=== PATIENT | female | born 1980 | race Caucasian/White ===

== ENCOUNTER 2018-06-13 16:56 | Emergency (ER) | payer OTHER ==
[2018-06-13] MEDS ORDERED: Sodium Chloride 0.9% 1000 ML 1,000 ML IV STA (17:14)
[2018-06-13] MEDS ORDERED: Reglan 10 MG/2 ML IV ONE (17:15)
[2018-06-13] MEDS ORDERED: BENADRYL 50 MG/ML IV ONE (17:15)
--- NOTE | 2018-06-13 17:19 | ERPHSYRPT ---
- History of Present Illness Time Seen by Provider: 06/13/18 17:10 Source: patient Exam Limitations: no limitations Patient Subjective Stated Complaint: MIGRAINE SINCE LAST SUNDAY. WAS SEEN AT [facility] LAST SUNDAY AND HAD A WORKUP DONE. CT WAS NEGATIVE ACCORDING TO PATIENT. TODAY IS HAVING MIGRAINE AGAIN WITH DIZZINESS AND NAUSEA. Triage Nursing Assessment: TO ROOM PER EMS COT. SKIN W/D, COLOR NORMAL, RESP EASY. STATES HEADACHE IS BETTER TODAY BUT IS CONCERNED ABOUT DIZZINESS. [place] Physician History: 37-year-old white female arrives with complaint of migraine headache symptoms since Sunday 5 days ago. Patient states her headache is improving somewhat but is still present she also states that she is feeling dizzy today worse with turning her head. Patient apparently had a complete workup at [facility] which included head CT. Patient denies any fevers she has been nauseous. Past medical history includes migraines, hypothyroidism, GERD, asthma, Sjogren syndrome, celiac. Past surgical history includes cholecystectomy, nieces fundoplication, D&C, bone spur removal Social history patient denies tobacco alcohol or illicit drug use Timing/Duration: day(s) Severity: moderate (5 days) Modifying Factors: Improves With: nothing Associated Symptoms: nausea, vomiting, headaches, No abdominal pain, No shortness of breath, No heartburn, No diaphoresis, No cough, No chills, No chest pain, No fever, No loss of appetite, No malaise, No rash, No syncope, No seizure, No weakness Allergies/Adverse Reactions: latex Allergy (Mild, Verified 12/18/14 02:47) Shortness of Breath DERMABOND Allergy (Mild, Uncoded 12/18/14 02:47) Hives tape Allergy (Mild, Uncoded 12/18/14 02:47) Rash Home Medications: Levothyroxine Sodium 75 Mcg [Synthroid 75 Mcg] 88 mcg PO DAILY 08/09/13 [ History] Topiramate 100 mg [Topamax 100 MG] 50 mg PO BID 08/09/13 [History] Sucralfate 1 gm [Carafate 1 GM] 1 g PO DAILY PRN PRN 12/18/14 [History] Bacillus Coagulans [Probiotic] 1 each PO DAILY 06/13/18 [History] Hydroxychloroquine Sulfate [Plaquenil] 300 mg PO DAILY 06/13/18 [History] Multivitamin [Multivitamins] 1 each PO DAILY 06/13/18 [History] Norethindrone AC-Eth Estradiol [Loestrin 21 1-20 Tablet] 1 each PO DAILY [History] Hx Tetanus, Diphtheria Vaccination/Date Given: Yes Hx Influenza Vaccination/Date Given: Yes Hx Pneumococcal Vaccination/Date Given: No - Review of Systems Constitutional: No Fever, No Chills Eyes: No Symptoms, Photophobia (the) Ears, Nose, & Throat: No Symptoms Respiratory: No Cough, No Dyspnea Cardiac: No Chest Pain, No Edema, No Syncope Abdominal/Gastrointestinal: No Abdominal Pain, No Nausea, No Vomiting, No Diarrhea Genitourinary Symptoms: No Symptoms Musculoskeletal: No Back Pain, No Neck Pain Neurological: Dizziness, Headache, No Focal Weakness, No Sensory Changes Psychological: No Symptoms Endocrine: No Symptoms All Other Systems: Reviewed and Negative - Past Medical History Pertinent Past Medical History: Yes Neurological History: Migraines ENT History: No Pertinent History Cardiac History: No Pertinent History Respiratory History: Asthma Endocrine Medical History: Hypothyroidism Musculoskeletal History: No Pertinent History GI Medical History: GERD, Other History: No Pertinent History Psycho-Social History: No Pertinent History Female Reproductive Disorders: No Pertinent History Other Medical History: CHOGRAN'S - CELIACS WITH MALABSORPTION - Past Surgical History Past Surgical History: Yes Neuro Surgical History: No Pertinent History Cardiac: No Pertinent History Respiratory: No Pertinent History Gastrointestinal: Cholecystectomy, Other Genitourinary: No Pertinent History Musculoskeletal: Orthopedic Surgery Female Surgical History: Other Other Surgical History: NISAN FUNDIFICATION - D AND C - BONE SPUR REMOVAL - Social History Smoking Status: Never smoker Exposure to second hand smoke: No Drug Use: none Patient Lives Alone: No - Female History Hx Last Menstrual Period: ONE WEEK AGO Hx Now: No - Nursing Vital Signs Nursing Vital Signs: Initial Vital Signs Temperature 98.9 F 06/13/18 16:57 Pulse Rate 77 06/13/18 16:57 Respiratory Rate 16 06/13/18 16:57 Blood Pressure 139/78 06/13/18 16:57 O2 Sat by Pulse Oximetry 98 06/13/18 16:57 Pain Scale Pain Intensity 0 - Physical Exam General Appearance: mild distress Eye Exam: PERRL/EOMI, eyes nml inspection Ears, Nose, Throat Exam: normal ENT inspection, TMs normal, pharynx normal, moist mucous membranes Neck Exam: normal inspection, non-tender, supple, full range of motion Respiratory Exam: normal breath sounds, lungs clear, No respiratory distress Cardiovascular Exam: regular rate/rhythm, normal heart sounds, normal peripheral pulses, capillary refill <2 sec Gastrointestinal/Abdomen Exam: soft, normal bowel sounds, No tenderness, No mass Back Exam: normal inspection, normal range of motion, No CVA tenderness, No vertebral tenderness Extremity Exam: normal inspection, normal range of motion, pelvis stable Neurologic Exam: alert, oriented x 3, 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, 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, normal mood/affect Skin Exam: normal color, warm, dry, No rash Lymphatic Exam: No adenopathy SpO2 Interpretation: normal (98%) SpO2: 98 Ordered Tests: Medication Summary Discontinued Medications Generic Name Dose Route Start Last Admin Trade Name Freq PRN Reason Stop Dose Admin Diphenhydramine HCl 25 mg 06/13/18 17:15 06/13/18 17:56 Benadryl 50 Mg/Ml IV 06/13/18 17:16 25 mg STAT ONE Administration Diphenhydramine HCl Confirm 06/13/18 17:47 Benadryl 50 Mg/Ml Administered 06/13/18 17:48 Dose 50 mg .ROUTE .STK-MED ONE Sodium Chloride 1,000 mls @ 999 mls/hr 06/13/18 17:14 06/13/18 19:08 Sodium Chloride 0.9% 1000 Ml IV 06/13/18 18:14 Infused .Q1H1M STA Infusion Sodium Chloride Confirm 06/13/18 17:47 Sodium Chloride 0.9% 1000 Ml Administered 06/13/18 17:48 Dose 1,000 mls @ ud .ROUTE .STK-MED ONE Metoclopramide HCl 10 mg 06/13/18 17:15 06/13/18 17:56 Reglan 10 Mg/2 Ml IV 06/13/18 17:16 10 mg STAT ONE Administration Metoclopramide HCl Confirm 06/13/18 17:47 Reglan 10 Mg/2 Ml Administered 06/13/18 17:48 Dose 10 mg .ROUTE .STK-MED ONE Lab/Rad Data: Laboratory Result Diagrams 06/13/18 17:30 03/14/19 17:30 Laboratory Results 06/13/18 06/13/18 06/13/18 Range/Units 18:00 17:30 17:30 WBC (4.0-10.5) K/mm3 RBC (4.1-5.4) M/mm3 Hgb (12.0-16.0) gm/dl Hct (35-47) % MCV (78-100) fl MCH (26-32) pg MCHC (32-36) g/dl RDW (11.5-14.0) % Plt Count (150-450) K/mm3 MPV (6-9.5) fl Gran % (36.0-66.0) % Eos # (Auto) (0-0.5) Absolute Lymphs (auto) (1.0-4.6) Absolute Monos (auto) (0.0-1.3) Lymphocytes % (24.0-44.0) % Monocytes % (0.0-12.0) % Eosinophils % (0.00-5.0) % Basophils % (0.0-0.4) % Absolute Granulocytes (1.4-6.9) Basophils # (0-0.4) Sodium 140 (137-145) mmol/L Potassium 3.8 (3.5-5.1) mmol/L Chloride 109 H (98-107) mmol/L Carbon Dioxide 19 L (22-30) mmol/L Anion Gap 16.4 H (5-15) MEQ/L BUN 14 (7-17) mg/dL Creatinine 0.76 (0.52-1.04) mg/dL Estimated GFR > 60.0 ML/MIN Glucose 78 (74-106) mg/dL Calcium 9.5 (8.4-10.2) mg/dL Total Bilirubin 2.10 H (0.2-1.3) mg/dL AST 22 (14-36) U/L ALT 18 (0-35) U/L Alkaline Phosphatase 52 (38-126) U/L Serum Total Protein 7.9 (6.3-8.2) g/dL Albumin 4.5 (3.5-5.0) g/dL Amylase 83 (30-110) U/L Lipase 69 (23-300) U/L Serum , Qual NEGATIVE (Negative) Urine Color YELLOW (YELLOW) Urine Appearance SLIGHTLY CLOUDY (CLEAR) Urine pH 5.0 (5-6) Ur Specific [place] 1.028 (1.005-1.025) Urine Protein NEGATIVE (Negative) Urine Ketones MODERATE (NEGATIVE) Urine Blood NEGATIVE (0-5) Rodrigo/ul Urine Nitrite NEGATIVE (NEGATIVE) Urine Bilirubin NEGATIVE (NEGATIVE) Urine Urobilinogen NEGATIVE (0-1) mg/dL Ur Leukocyte Esterase NEGATIVE (NEGATIVE) Urine WBC (Auto) 3-5 (0-5) /HPF Urine RBC (Auto) 0-2 (0-2) /HPF U Epithel Cells (Auto) MODERATE (FEW) /HPF Urine Bacteria (Auto) NONE (NEGATIVE) /HPF Urine Mucus (Auto) SLIGHT (NEGATIVE) /HPF Urine Culture Reflexed NO (NO) Urine Glucose NEGATIVE (NEGATIVE) mg/dL 06/13/18 Range/Units 17:30 WBC 6.5 (4.0-10.5) K/mm3 RBC 4.68 (4.1-5.4) M/mm3 Hgb 13.8 (12.0-16.0) gm/dl Hct 42.3 (35-47) % MCV 90.4 (78-100) fl MCH 29.5 (26-32) pg MCHC 32.6 (32-36) g/dl RDW 15.1 H (11.5-14.0) % Plt Count 268 (150-450) K/mm3 MPV 10.9 H (6-9.5) fl Gran % 69.9 H (36.0-66.0) % Eos # (Auto) 0.05 (0-0.5) Absolute Lymphs (auto) 1.45 (1.0-4.6) Absolute Monos (auto) 0.43 (0.0-1.3) Lymphocytes % 22.2 L (24.0-44.0) % Monocytes % 6.6 (0.0-12.0) % Eosinophils % 0.8 (0.00-5.0) % Basophils % 0.5 (0.0-0.4) % Absolute Granulocytes 4.56 (1.4-6.9) Basophils # 0.03 (0-0.4) Sodium (137-145) mmol/L Potassium (3.5-5.1) mmol/L Chloride (98-107) mmol/L Carbon Dioxide (22-30) mmol/L Anion Gap (5-15) MEQ/L BUN (7-17) mg/dL Creatinine (0.52-1.04) mg/dL Estimated GFR ML/MIN Glucose (74-106) mg/dL Calcium (8.4-10.2) mg/dL Total Bilirubin (0.2-1.3) mg/dL AST (14-36) U/L ALT (0-35) U/L Alkaline Phosphatase (38-126) U/L Serum Total Protein (6.3-8.2) g/dL Albumin (3.5-5.0) g/dL Amylase (30-110) U/L Lipase (23-300) U/L Serum , Qual (Negative) Urine Color (YELLOW) Urine Appearance (CLEAR) Urine pH (5-6) Ur Specific [place] (1.005-1.025) Urine Protein (Negative) Urine Ketones (NEGATIVE) Urine Blood (0-5) Rodrigo/ul Urine Nitrite (NEGATIVE) Urine Bilirubin (NEGATIVE) Urine Urobilinogen (0-1) mg/dL Ur Leukocyte Esterase (NEGATIVE) Urine WBC (Auto) (0-5) /HPF Urine RBC (Auto) (0-2) /HPF U Epithel Cells (Auto) (FEW) /HPF Urine Bacteria (Auto) (NEGATIVE) /HPF Urine Mucus (Auto) (NEGATIVE) /HPF Urine Culture Reflexed (NO) Urine Glucose (NEGATIVE) mg/dL - Progress Progress: improved Progress Note: 06/13/18 18:35 Patient is feeling better after IV normal saline, Reglan, Benadryl. She states she had slight dizziness with sitting up however she does not want any more fluids. I reviewed the patient's head CT from [facility] which was performed on June 08, 2018. This was remarkable for a normal unenhanced CT scan of the brain. Will plan to discharge patient. Diagnosis migraine headache. Dizziness. Patient to return home rest in dark quiet room plenty of fluids follow-up with Dr. Friedman. Return for acute distress or for severe symptoms. Patient's urinalysis essentially normal hCG was negative CBC was normal chemistry remarkable for sodium of 140 potassium 3.8 chloride 109 bicarbonate 19 BUN 14 creatinine 0.76 glucose 78 total bilirubin was elevated at 2.10 patient is not having abdominal pain patient and and gap was 16.4 patient's EKG was remarkable for sinus rhythm 59 bpm normal axis no acute ST or T wave changes. Patient will be released in good condition - Departure Time of Disposition: 19:10 Departure Disposition: Home Clinical Impression: Dehydration, Dizziness Migraine headache Qualifiers: Migraine type: unspecified Status migrainosus presence: without status migrainosus Intractability: not intractable Qualified Code(s): G43.909 - Migraine, unspecified, not intractable, without status migrainosus Condition: Fair Critical Care Time: No Referrals: SAYDA FRIEDMAN [Primary Care Provider] - Additional Instructions: Return home. Rest. Plenty of fluids. Follow-up with Dr. Friedman if symptoms recurrent. Return for acute distress severe symptoms or for any problems.
[2018-06-13] MEDS ORDERED: Sodium Chloride 0.9% 1000 ML 1,000 ML ONE (17:47)
[2018-06-13] MEDS ORDERED: Reglan 10 MG/2 ML ONE (17:47)
[2018-06-13] MEDS ORDERED: BENADRYL 50 MG/ML ONE (17:47)
[2018-06-13 17:51] LABS: ALBUMIN 4.5 g/dL (3.5-5.0); ALKALINE PHOSPHATASE 52 U/L (38-126); AMYLASE 83 U/L (30-110); ANION GAP 16.4 MEQ/L (5-15); BLOOD UREA NITROGEN 14 mg/dL (7-17); CHLORIDE 109 mmol/L (98-107); Calcium 9.5 mg/dL (8.4-10.2); Carbon Dioxide 19 mmol/L (22-30); Creatinine 1 0.76 mg/dL (0.52-1.04); Glucose 78 mg/dL (74-106); LIPASE 69 U/L (23-300); Potassium 3.8 mmol/L (3.5-5.1); SGOT/AST 22 U/L (14-36); SGPT/ALT 18 U/L (0-35); SODIUM 140 mmol/L (137-145); Total Protein 7.9 g/dL (6.3-8.2)
[2018-06-13 18:03] VITALS: PULSE 56
[2018-06-13 18:04] LABS: BASOPHIL % 0.5 % (0.0-0.4); Basophil (Absolute #) 0.03 (0-0.4); Eosinophil % 0.8 % (0.00-5.0); Eosinophil (Absolute #) 0.05 (0-0.5); Granulocyte Absolute (ANC) 4.56 (1.4-6.9); Granulocytes % 69.9 % (36.0-66.0); Hematocrit 42.3 % (35-47); Hemoglobin 13.8 gm/dl (12.0-16.0); Lymphocyte (Absolute #) 1.45 (1.0-4.6); Lymphocytes % 22.2 % (24.0-44.0); Mean Cell Volume 90.4 fl (78-100); Mean Corpuscular Hemoglobin 29.5 pg (26-32); Mean Corpuscular Hgb Concent. 32.6 g/dl (32-36); Mean Platelet Volume 10.9 fl (6-9.5); Monocyte (Absolute #) 0.43 (0.0-1.3); Monocytes % 6.6 % (0.0-12.0); Platelet Count 268 K/mm3 (150-450); Red Blood Count 4.68 M/mm3 (4.1-5.4); Red Cell Distribution Width 15.1 % (11.5-14.0); White Blood Count 6.5 K/mm3 (4.0-10.5)
[2018-06-13 18:12] VITALS: O2SAT 98
[2018-06-13 18:31] LABS: Appearance SLIGHTLY CLOUDY (CLEAR); Bilirubin NEGATIVE (NEGATIVE); Blood NEGATIVE Ery/ul (0-5); Epithelial Cells MODERATE /HPF (FEW); Glucose NEGATIVE (NEGATIVE); Ketones MODERATE (NEGATIVE); Leukocyte Esterase NEGATIVE (NEGATIVE); Mucus SLIGHT /HPF (NEGATIVE); Nitrite NEGATIVE (NEGATIVE); Protein,Urine Dip NEGATIVE (Negative); RBC 0-2 /HPF (0-2); Specific Gravity 1.028 (1.005-1.025); Urobilinogen NEGATIVE mg/dL (0-1)
[2018-06-13 19:10] VITALS: BP 107/60
== END 2018-06-13 19:10 | disposition home or self-care (01) ==
LOC: ED 16:56
DX: E86.0 Dehydration (principal); R42 Dizziness and giddiness; G43.909 Migraine, unspecified, not intractable, without status migrainosus
CPT/HCPCS: 36000; 36415; 80053; 81001; 81025; 82150; 83690; 85025; 93005; 96360; 96374; 96375; 99284; J1200

== ENCOUNTER 2022-01-19 06:25 | Emergency (ER) | payer OTHER ==
[2022-01-19] MEDS ORDERED: Sodium Chloride 0.9% 1000 ML 1,000 ML IV STA (07:10)
--- NOTE | 2022-01-19 07:10 | ERPHSYRPT ---
- History of Present Illness Time Seen by Provider: 01/19/22 07:05 Source: patient Exam Limitations: no limitations Patient Subjective Stated Complaint: pt states "I started feeling dizzy last night around 8 and then I started throwing up early this morning." Triage Nursing Assessment: pt presents to ED via wheelchair, pt alert and oriented x3, pt c/o dizziness and vomiting that started last night, pt dry heaving in triage, pt denies fever, pt has LLQ pain as well, pt does have diarrhea but she took laxatives yesterday d/t being constipated, pt has recent hysterectomy surgery on 12/21/[address] Traore Physician History: This is a 41-year-old white female patient of Dr. Almonte and presents with dizziness that started at 8 PM last night. Symptoms persisted throughout the night and patient had vomiting this morning then dry heaves. She had a Whitney fundoplication in the past. Within the last 2 months she underwent a hysterectomy. Patient has a history of gastroesophageal reflux disease and hypothyroidism. Patient describes her dizziness as the room spinning but she is stationary. There is been no changes in her medication or stressors at home. She denies head injury. She denies chest pain and she denies shortness of breath. Timing/Duration: yesterday Severity: mild Deficits: no difficulties Baseline/Normal Cognition: alert oriented x 3 Current Cognition: alert oriented x 3 Associated Symptoms: nausea, vomiting, No weakness, No ringing in ears, No seizures, No slurred speech, No vision changes, No headache Allergies/Adverse Reactions: latex Allergy (Mild, Verified 01/19/22 06:40) Shortness of Breath DERMABOND Allergy (Mild, Uncoded 12/18/14 02:47) Hives tape Allergy (Mild, Uncoded 12/18/14 02:47) Rash Home Medications: Multivitamin [Multivitamins] 1 each PO DAILY 06/13/18 [History] Famotidine 20 mg [Pepcid 20 MG] 20 mg PO DAILY 01/19/22 [History] Pantoprazole 40 mg [Protonix 40 mg IV] 40 mg PO DAILY 01/19/22 [History] Hx Tetanus, Diphtheria Vaccination/Date Given: Yes Hx Influenza Vaccination/Date Given: Yes Hx Pneumococcal Vaccination/Date Given: No Immunizations Up to Date: No Travel Risk - International Travel Have you traveled outside of the country in past 3 weeks: No - Coronavirus Screening Are you exhibiting any of the following symptoms?: No Close contact with a COVID-19 positive Pt in past 14-21 Days: No - Vaccine Status Have you recieved a Covid-19 vaccination: Yes 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: [employer] - Vaccination Dates Date of 2cond Vaccination (if applicable): 2020 - Review of Systems Constitutional: No Symptoms Eyes: No Symptoms Ears, Nose, & Throat: No Symptoms Respiratory: No Symptoms Cardiac: No Symptoms Abdominal/Gastrointestinal: No Symptoms Genitourinary Symptoms: No Symptoms Musculoskeletal: No Symptoms Skin: No Symptoms Neurological: Dizziness Psychological: No Symptoms Endocrine: No Symptoms Hematologic/Lymphatic: No Symptoms Immunological/Allergic: No Symptoms All Other Systems: Reviewed and Negative - Past Medical History Pertinent Past Medical History: Yes Neurological History: Migraines ENT History: No Pertinent History Cardiac History: No Pertinent History Respiratory History: Asthma, Other Endocrine Medical History: Hypothyroidism Musculoskeletal History: Arthritis GI Medical History: GERD, Other History: No Pertinent History Psycho-Social History: No Pertinent History Female Reproductive Disorders: No Pertinent History Other Medical History: COVID-19, R foot surgery, cholecystectomy, tubal ligation, hiatal hernia repair, Whitney fundoplication - Past Surgical History Past Surgical History: Yes Neuro Surgical History: No Pertinent History Cardiac: No Pertinent History Respiratory: No Pertinent History Gastrointestinal: Cholecystectomy, Other Genitourinary: No Pertinent History Musculoskeletal: Orthopedic Surgery Female Surgical History: Hysterectomy, Tubal Ligation, Other Other Surgical History: NISAN FUNDIFICATION - D AND C - BONE SPUR REMOVAL - Social History Smoking Status: Never smoker Exposure to second hand smoke: No Drug Use: none Patient Lives Alone: No - Female History Hx Last Menstrual Period: hysterectomy Hx Now: No - Nursing Vital Signs Nursing Vital Signs: Initial Vital Signs Temperature 97.6 F 01/19/22 06:40 Pulse Rate 63 01/19/22 06:40 Respiratory Rate 18 01/19/22 06:40 Blood Pressure 117/79 01/19/22 06:40 O2 Sat by Pulse Oximetry 100 01/19/22 06:40 Pain Scale Pain Intensity 2 - [place] Coma Scale Best Eye Response (Connor): (4) open spontaneously Best Verbal Response (Connor): (5) oriented Best Motor Response (Connor): (6) obeys commands [place] Total: 15 - Physical Exam General Appearance: no apparent distress, alert, anxiety Eye Exam: bilateral eye: normal inspection, PERRL, EOMI Ears, Nose, Throat Exam: normal ENT inspection, moist mucous membranes Neck Exam: normal inspection, non-tender, supple, full range of motion Respiratory: normal breath sounds, lungs clear, airway intact, No chest tenderness, No respiratory distress Cardiovascular: regular rate/rhythm, normal heart sounds, normal peripheral pulses Gastrointestinal: soft, normal bowel sounds, No tenderness Pelvic Exam: not done Rectal Exam: not done Back Exam: normal inspection, normal range of motion, No CVA tenderness, No vertebral tenderness Extremity Exam: normal inspection, normal range of motion, pelvis stable Mental Status: alert, 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 x 3, 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 Exam: normal hearing, normal speech, PERRL Coordination/Gait: normal finger to nose, normal gait, normal cerebellar function Motor/Sensory: no motor deficit, no sensory deficit, no pronator drift Skin Exam: normal color, warm, dry SpO2 Interpretation: normal SpO2: 100 O2 Delivery: Room Air Ordered Tests: Active Orders 24 hr Category Date Time Status EKG-ER Only STAT Care 01/19/22 07:10 Active IV Insertion STAT Care 01/19/22 07:10 Active HEAD WITHOUT CONTRAST [CT] Stat Exams 01/19/22 07:10 Completed CBC W DIFF Stat Lab 01/19/22 07:25 Completed CMP Stat Lab 01/19/22 07:25 Completed ETHYL ALCOHOL Stat Lab 01/19/22 07:25 Completed T4 (Thyroxine) Stat Lab 01/19/22 07:25 Completed TROPONIN Q4H Lab 01/19/22 07:25 Completed TROPONIN Q4H Lab 01/19/22 11:15 Ordered TROPONIN Q4H Lab 01/19/22 15:15 Ordered TSH, 3RD Generation Stat Lab 01/19/22 07:25 Completed UA W/RFX CULTURE Stat Lab 01/19/22 09:34 Completed Medication Summary Discontinued Medications Generic Name Dose Route Start Last Admin Trade Name Freq PRN Reason Stop Dose Admin Sodium Chloride 1,000 mls @ 999 mls/hr 01/19/22 07:10 01/19/22 09:00 Sodium Chloride 0.9% 1000 Ml IV 01/19/22 08:10 Infused .Q1H1M STA Infusion Sodium Chloride Confirm 01/19/22 07:31 Sodium Chloride 0.9% 1000 Ml Administered 01/19/22 07:32 Dose 1,000 mls @ ud .ROUTE .K-MED ONE Prochlorperazine Edisylate 5 mg 01/19/22 07:11 01/19/22 07:27 Prochlorperazine Edisylate 10 Mg/2 Ml Vial IV 01/19/22 07:12 5 mg STAT ONE Administration Prochlorperazine Edisylate Confirm 01/19/22 07:27 Prochlorperazine Edisylate 10 Mg/2 Ml Vial Administered 01/19/22 07:28 Dose 10 mg .ROUTE .[facility] ONE Lab/Rad Data: Laboratory Result Diagrams 01/19/22 07:25 01/19/22 07:25 Laboratory Results 01/19/22 01/19/22 01/19/22 Range/Units 09:34 07:25 07:25 WBC (4.0-10.5) x10^3/uL RBC (4.1-5.4) x10^6/uL Hgb (12.0-16.0) g/dL Hct (35-47) % MCV (78-100) fL MCH (26-32) pg MCHC (32-36) g/dL RDW (11.5-14.0) % Plt Count (150-450) x10^3/uL MPV (7.5-11.0) fL Gran % (36.0-66.0) % Immature Gran % (Auto) (0.00-0.4) % Nucleat RBC Rel Count (0.00-0.1) % Eos # (Auto) (0-0.5) x10^3/uL Immature Gran # (Auto) (0.00-0.03) x10^3u/L Absolute Lymphs (auto) (1.0-4.6) x10^3/uL Absolute Monos (auto) (0.0-1.3) x10^3/uL Absolute Nucleated RBC (0.00-0.01) x10^3u/L Lymphocytes % (24.0-44.0) % Monocytes % (0.0-12.0) % Eosinophils % (0.00-5.0) % Basophils % (0.0-0.4) % Absolute Granulocytes (1.4-6.9) x10^3/uL Basophils # (0-0.4) x10^3/uL Sodium 137 (137-145) mmol/L Potassium 4.0 (3.5-5.1) mmol/L Chloride 106 (98-107) mmol/L Carbon Dioxide 29 (22-30) mmol/L Anion Gap 6.9 (5-15) MEQ/L BUN 14 (7-17) mg/dL Creatinine 0.62 (0.52-1.04) mg/dL Estimated GFR > 60.0 ML/MIN Glucose 102 (74-106) mg/dL Calcium 8.8 (8.4-10.2) mg/dL Total Bilirubin 1.10 (0.2-1.3) mg/dL AST 52 H (14-36) U/L ALT 65 H (0-35) U/L Alkaline Phosphatase 84 (38-126) U/L Troponin I < 0.012 (0.000-0.034) ng/mL Serum Total Protein 7.0 (6.3-8.2) g/dL Albumin 4.0 (3.5-5.0) g/dL Thyroxine (T4) 11.7 H (5.53-10.96) ug/dL TSH 3rd Generation < 0.015 L (0.47-4.68) mIU/L Urinalys Dipstick Clnc MAIN LAB Urine Color YELLOW (YELLOW) Urine Appearance CLEAR (CLEAR) Urine pH 7.0 (5-6) Ur Specific [place] 1.015 (1.005-1.025) POC Urine Protein Conf NEGATIVE (Negative) Urine Ketones MODERATE-40 (NEGATIVE) Urine Nitrite NEGATIVE (NEGATIVE) Urine Bilirubin NEGATIVE (NEGATIVE) Urine Urobilinogen 1 (0-1) mg/dL Urine Leukocytes NEGATIVE (NEGATIVE) Urine WBC (Auto) NONE (0-5) /HPF Urine RBC (Auto) NONE (0-2) /HPF U Epithel Cells (Auto) RARE (FEW) /HPF Urine Bacteria (Auto) RARE (NEGATIVE) /HPF Urine RBC NEGATIVE (0-5) Rodrigo/ul Ur Culture Indicated? NO Urine Glucose NEGATIVE (NEGATIVE) mg/dL Ethyl Alcohol < 10 (0-10) mg/dL 01/19/22 Range/Units 07:25 WBC 5.2 (4.0-10.5) x10^3/uL RBC 3.92 L (4.1-5.4) x10^6/uL Hgb 11.6 L (12.0-16.0) g/dL Hct 37.1 (35-47) % MCV 94.6 (78-100) fL MCH 29.6 (26-32) pg MCHC 31.3 L (32-36) g/dL RDW 12.0 (11.5-14.0) % Plt Count 213 (150-450) x10^3/uL MPV 10.1 (7.5-11.0) fL Gran % 67.4 H (36.0-66.0) % Immature Gran % (Auto) 0.4 (0.00-0.4) % Nucleat RBC Rel Count 0.0 (0.00-0.1) % Eos # (Auto) 0.17 (0-0.5) x10^3/uL Immature Gran # (Auto) 0.02 (0.00-0.03) x10^3u/L Absolute Lymphs (auto) 1.09 (1.0-4.6) x10^3/uL Absolute Monos (auto) 0.40 (0.0-1.3) x10^3/uL Absolute Nucleated RBC 0.00 (0.00-0.01) x10^3u/L Lymphocytes % 21.0 L (24.0-44.0) % Monocytes % 7.7 (0.0-12.0) % Eosinophils % 3.3 (0.00-5.0) % Basophils % 0.2 (0.0-0.4) % Absolute Granulocytes 3.51 (1.4-6.9) x10^3/uL Basophils # 0.01 (0-0.4) x10^3/uL Sodium (137-145) mmol/L Potassium (3.5-5.1) mmol/L Chloride (98-107) mmol/L Carbon Dioxide (22-30) mmol/L Anion Gap (5-15) MEQ/L BUN (7-17) mg/dL Creatinine (0.52-1.04) mg/dL Estimated GFR ML/MIN Glucose (74-106) mg/dL Calcium (8.4-10.2) mg/dL Total Bilirubin (0.2-1.3) mg/dL AST (14-36) U/L ALT (0-35) U/L Alkaline Phosphatase (38-126) U/L Troponin I (0.000-0.034) ng/mL Serum Total Protein (6.3-8.2) g/dL Albumin (3.5-5.0) g/dL Thyroxine (T4) (5.53-10.96) ug/dL TSH 3rd Generation (0.47-4.68) mIU/L Urinalys Dipstick Clnc Urine Color (YELLOW) Urine Appearance (CLEAR) Urine pH (5-6) Ur Specific [place] (1.005-1.025) POC Urine Protein Conf (Negative) Urine Ketones (NEGATIVE) Urine Nitrite (NEGATIVE) Urine Bilirubin (NEGATIVE) Urine Urobilinogen (0-1) mg/dL Urine Leukocytes (NEGATIVE) Urine WBC (Auto) (0-5) /HPF Urine RBC (Auto) (0-2) /HPF U Epithel Cells (Auto) (FEW) /HPF Urine Bacteria (Auto) (NEGATIVE) /HPF Urine RBC (0-5) Rodrigo/ul Ur Culture Indicated? Urine Glucose (NEGATIVE) mg/dL Ethyl Alcohol (0-10) mg/dL - Progress Progress: improved, re-examined Progress Note: 01/19/22 08:35 CAT scan of the head without contrast shows a normal study. Counseled pt/family regarding: lab results, diagnosis, need for follow-up, rad results - Departure Departure Disposition: Home Clinical Impression: Dizziness, Hyperthyroidism, Dehydration Condition: Stable Critical Care Time: No Referrals: SAYDA FRIEDMAN [Primary Care Provider] - Follow up/PCP as directed Additional Instructions: Call your primary prescribing provider today to make an arrangement for follow- up appointment for further evaluation management of your thyroid medication and persistent dizziness. Prescriptions: Ondansetron ODT 4 MG [Zofran Odt 4 mg] 4 mg PO Q6H PRN PRN #10 tablet PRN Reason: Vomiting Meclizine HCl 25 mg [Antivert 25 mg] 25 mg PO Q8H PRN #10 tablet PRN Reason: Dizziness
[2022-01-19] MEDS ORDERED: Compazine 10 MG/2 ML IV ONE (07:11)
[2022-01-19 07:27] LABS: Absolute Neutrophil Ct (ANC) 3.51 x10^3/uL (1.4-6.9); Basophil (Absolute #) 0.01 x10^3/uL (0-0.4); Eosinophil % 3.3 % (0.00-5.0); Eosinophil (Absolute #) 0.17 x10^3/uL (0-0.5); Hematocrit 37.1 % (35-47); Hemoglobin 11.6 g/dL (12.0-16.0); Lymphocyte (Absolute #) 1.09 x10^3/uL (1.0-4.6); Mean Cell Volume 94.6 fL (78-100); Mean Corpuscular Hemoglobin 29.6 pg (26-32); Mean Corpuscular Hgb Concent. 31.3 g/dL (32-36); Mean Platelet Volume 10.1 fL (7.5-11.0); Monocytes % 7.7 % (0.0-12.0); Neutrophil % 67.4 % (36.0-66.0); Platelet Count 213 x10^3/uL (150-450); Red Blood Count 3.92 x10^6/uL (4.1-5.4); White Blood Count 5.2 x10^3/uL (4.0-10.5)
[2022-01-19] MEDS ORDERED: Compazine 10 MG/2 ML ONE (07:27)
[2022-01-19] MEDS ORDERED: Sodium Chloride 0.9% 1000 ML 1,000 ML ONE (07:31)
[2022-01-19 08:17] LABS: ALKALINE PHOSPHATASE 84 U/L (38-126); ANION GAP 6.9 MEQ/L (5-15); BLOOD UREA NITROGEN 14 mg/dL (7-17); CHLORIDE 106 mmol/L (98-107); Calcium 8.8 mg/dL (8.4-10.2); Carbon Dioxide 29 mmol/L (22-30); Creatinine 1 0.62 mg/dL (0.52-1.04); EST GLOMERULAR FILTRATION RATE > 60.0 ML/MIN; ETHYL ALCOHOL < 10 mg/dL (0-10); Glucose 102 mg/dL (74-106); SGOT/AST 52 U/L (14-36); SGPT/ALT 65 U/L (0-35); SODIUM 137 mmol/L (137-145); T4 (Thyroxine) 11.7 ug/dL (5.53-10.96); TSH, 3RD Generation < 0.015 mIU/L (0.47-4.68)
--- NOTE | 2022-01-19 08:34 | XRAY ---
Indication: Dizziness, nausea, and vomiting. Multiple contiguous axial images obtained through the head without contrast. Comparison: None Normal appearing brain parenchyma, ventricles, and bony calvarium for patient's age. Visualized paranasal sinuses and mastoid air cells are clear. Impression: Normal CT head without contrast exam.
[2022-01-19 09:40] LABS: Bacteria RARE /HPF (NEGATIVE); Epithelial Cells RARE /HPF (FEW)
[2022-01-19 09:41] LABS: Appearance CLEAR (CLEAR); Dipstick done @ ? MAIN LAB; Ketones MODERATE-40 (NEGATIVE); Nitrite NEGATIVE (NEGATIVE); Protein,Urine Dip NEGATIVE (Negative); RBC NEGATIVE Ery/ul (0-5); Specific Gravity 1.015 (1.005-1.025); Urobilinogen 1 mg/dL (0-1)
[2022-01-19 09:43] LABS: Glucose NEGATIVE (NEGATIVE)
[2022-01-19 09:44] LABS: Bilirubin NEGATIVE (NEGATIVE); Urine Cultured Indicated? NO
[2022-01-19 10:51] VITALS: BP 111/75; PULSE 68; O2SAT 98
== END 2022-01-19 10:52 | disposition home or self-care (01) ==
LOC: ED 06:25
DX: E05.90 Thyrotoxicosis, unspecified without thyrotoxic crisis or storm (principal); R42 Dizziness and giddiness; E86.0 Dehydration; R11.2 Nausea with vomiting, unspecified; Z86.16 Personal history of COVID-19
CPT/HCPCS: 36000; 36415; 70450; 80053; 80307; 81015; 84436; 84443; 84484; 85025; 93005; 96374; 99284; G0480

== ENCOUNTER 2023-02-23 06:11 | Emergency (ER) | payer OTHER ==
[2023-02-23 06:47] VITALS: TEMP 97.9
--- NOTE | 2023-02-23 06:50 | ERPHSYRPT ---
- History of Present Illness Source: patient Exam Limitations: no limitations Timing/Duration: today Activities at Onset: activity Severity of Dyspnea-Max: moderate Severity of Dyspnea-Current: mild (To moderate) Possible Cause: no prior episodes Associated Symptoms: ankle swelling, dizziness, No cough, No chest pain/discomfort, No calf pain, No productive cough Hx Tetanus, Diphtheria Vaccination/Date Given: Yes Hx Influenza Vaccination/Date Given: Yes Hx Pneumococcal Vaccination/Date Given: No <EMERALD QUINTANILLA - Last Filed: 02/23/23 06:44> <ALLEN MAURER - Last Filed: 02/23/23 11:06> - History of Present Illness Time Seen by Provider: 02/23/23 06:25 Physician History: This is a 42-year-old white female patient of Dr. Norwood who has a history of dizziness and woke up dizzy at approximately 4 AM to go into work. She then experienced shortness of breath that was significant enough for her to come into the emergency department. She denies nausea vomiting or diarrhea symptoms. She denies cough. She denies chest pain. Patient has a history of asthma, gastroesophageal reflux disease, hypothyroidism and arthritis. 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 Meyer and pain specialist Dr. Ureña. (EMERALD QUINTANILLA) Allergies/Adverse Reactions: Iodinated Contrast Media Allergy (Intermediate, Verified 02/23/23 08:40) Shortness of Breath latex Allergy (Mild, Verified 02/23/23 06:13) Shortness of Breath cockroach Allergy (Verified 02/23/23 06:13) shrimp Allergy (Verified 02/23/23 06:13) DERMABOND Allergy (Mild, Uncoded 02/23/23 06:13) Hives tape Allergy (Mild, Uncoded 02/23/23 06:13) Rash Home Medications: Multivitamin [Multivitamins] 1 each PO DAILY 06/13/18 [History] Famotidine 20 mg [Pepcid 20 MG] 20 mg PO DAILY 01/19/22 [History] Acarbose 25 mg PO TID 02/23/23 [History] Gabapentin [Neurontin ] 100 mg PO TID 02/23/23 [History] Levothyroxine Sodium [Tirosint] 100 mcg PO DAILY 02/23/23 [History] PANTOPRAZOLE 40 mg Tablet [Protonix 40MG Tablet] 40 mg PO DAILY 02/23/23 [History] Torsemide 20 mg [Demadex 20 mg] 20 mg PO DAILY 02/23/23 [History] Valacyclovir HCl [Valacyclovir] 500 mg PO DAILY 02/23/23 [History] Travel Risk - International Travel Have you traveled outside of the country in past 3 weeks: No - Coronavirus Screening Are you exhibiting any of the following symptoms?: Yes Symptoms: Shortness of Breath Close contact with a COVID-19 positive Pt in past 14-21 Days: No - Vaccine Status Have you recieved a Covid-19 vaccination: Yes [employer]: [employer] - Vaccination Dates Date of 2cond Vaccination (if applicable): 2020 <EMERALD QUINTANILLA - Last Filed: 02/23/23 06:44> - Review of Systems Constitutional: No Symptoms Eyes: No Symptoms Ears, Nose, & Throat: No Symptoms Respiratory: Dyspnea Cardiac: No Symptoms Abdominal/Gastrointestinal: No Symptoms Genitourinary Symptoms: No Symptoms Musculoskeletal: No Symptoms Skin: No Symptoms Neurological: No Symptoms Psychological: No Symptoms Endocrine: No Symptoms Hematologic/Lymphatic: No Symptoms Immunological/Allergic: No Symptoms All Other Systems: Reviewed and Negative <EMERALD QUINTANILLA - Last Filed: 02/23/23 06:44> - Past Medical History Pertinent Past Medical History: Yes Neurological History: Migraines ENT History: No Pertinent History Cardiac History: No Pertinent History Respiratory History: Asthma, Other Endocrine Medical History: Hypothyroidism Musculoskeletal History: Arthritis GI Medical History: GERD, Other History: No Pertinent History Psycho-Social History: No Pertinent History Female Reproductive Disorders: No Pertinent History Other Medical History: COVID-19, R foot surgery, cholecystectomy, tubal ligation, hiatal hernia repair, Whitney fundoplication - Past Surgical History Past Surgical History: Yes Neuro Surgical History: No Pertinent History Cardiac: No Pertinent History Respiratory: No Pertinent History Gastrointestinal: Cholecystectomy, Other Genitourinary: No Pertinent History Musculoskeletal: Orthopedic Surgery Female Surgical History: Hysterectomy, Tubal Ligation, Other Other Surgical History: NISAN FUNDIFICATION - D AND C - BONE SPUR REMOVAL - Social History Smoking Status: Never smoker Exposure to second hand smoke: No Drug Use: none Patient Lives Alone: No <EMERALD QUINTANILLA YulissaAxel - Last Filed: 02/23/23 06:44> - Physical Exam General Appearance: no apparent distress, alert, anxiety Eye Exam: PERRL/EOMI, eyes nml inspection Ears, Nose, Throat Exam: hearing grossly normal, normal ENT inspection, normal pharynx Neck Exam: normal inspection, non-tender, supple, full range of motion Respiratory Exam: normal breath sounds, lungs clear, airway intact, No chest tenderness, No respiratory distress Cardiovascular/Chest Exam: normal heart sounds, regular rate/rhythm Abdominal/Gastrointestinal Exam: soft, normal bowel sounds, No tenderness Rectal Exam: not done Extremity Exam: non-tender, normal range of motion, normal inspection Neurologic Exam: alert, oriented x 3, cooperative, electronic die maker II-XII nml as tested, normal mood/affect, nml cerebellar function, nml station & gait, sensation nml Skin Exam: normal color, warm, dry Lymphatic Exam: No adenopathy SpO2 Interpretation: normal O2 Delivery: Room Air <EMERALD QUINTANILLA - Last Filed: 02/23/23 06:44> - Nursing Vital Signs Nursing Vital Signs: Initial Vital Signs Temperature 97.9 F 02/23/23 06:12 Pulse Rate 76 02/23/23 06:12 Respiratory Rate 24 02/23/23 06:12 Blood Pressure 139/79 02/23/23 06:12 O2 Sat by Pulse Oximetry 100 02/23/23 06:12 Pain Scale Pain Intensity 0 - Course Nursing assessment & vital signs reviewed: Yes EKG Interpreted by Me: RATE (78), Sinus Rhythm, Left Henry Deviation (Borderline), NORMAL INTERVALS, NORMAL QRS, NORMAL ST-T, Other (No acute ischemic changes on today's twelve-lead EKG.) <EMERALD QUINTANILLA - Last Filed: 02/23/23 06:44> Ordered Tests: Active Orders 24 hr Category Date Time Status EKG-ER Only STAT Care 02/23/23 06:51 Active IV Insertion STAT Care 02/23/23 06:51 Active Pulse Oximetry (ED) STAT Care 02/23/23 06:51 Active CHEST 1 VIEW (PORTABLE) Stat Exams 02/23/23 07:06 Completed CHEST WITH CONTRAST [CT] Stat Exams 02/23/23 07:48 Completed BLOOD CULTURE Stat Lab 02/23/23 07:10 Received CBC W DIFF Stat Lab 02/23/23 07:15 Completed CMP Stat Lab 02/23/23 06:30 Completed D-DIMER QUANTITATIVE Stat Lab 02/23/23 06:30 Completed MAGNESIUM Stat Lab 02/23/23 06:30 Completed NT PRO BNPII Stat Lab 02/23/23 06:30 Completed TROPONIN Q4H Lab 02/23/23 07:15 Completed TROPONIN Q4H Lab 02/23/23 10:15 Completed TROPONIN Q4H Lab 02/23/23 15:00 Ordered Medication Summary Discontinued Medications Generic Name Dose Route Start Last Admin Trade Name Yanq PRN Reason Stop Dose Admin Methylprednisolone Sodium 0 mg 02/23/23 08:21 02/23/23 08:24 Succinate 125 mg/ Sterile IV 02/23/23 08:22 125 mg Water 2 ml STAT ONE Administration Diphenhydramine HCl 25 mg 02/23/23 08:21 02/23/23 08:26 Diphenhydramine Hcl 50 Mg/Ml Vial IV 02/23/23 08:22 25 mg STAT ONE Administration Diphenhydramine HCl Confirm 02/23/23 08:23 Diphenhydramine Hcl 50 Mg/Ml Vial Administered 02/23/23 08:24 Dose 50 mg .ROUTE .STK-MED ONE Famotidine 20 mg 02/23/23 08:21 02/23/23 08:25 Famotidine 20 Mg/1 Vial IV 02/23/23 08:22 20 mg STAT ONE Administration Famotidine Confirm 02/23/23 08:23 Famotidine 20 Mg/1 Vial Administered 02/23/23 08:24 Dose 20 mg IV .STK-MED ONE Meclizine HCl 25 mg 02/23/23 07:58 02/23/23 08:00 Meclizine Hcl 25 Mg Tablet PO 02/23/23 07:59 25 mg STAT ONE Administration Meclizine HCl Confirm 02/23/23 07:59 Meclizine Hcl 25 Mg Tablet Administered 02/23/23 08:00 Dose 25 mg .ROUTE .STK-MED ONE Methylprednisolone Sodium Succinate Confirm 02/23/23 08:23 Methylprednis Sod Succ 125 Mg/2 Ml Vial Administered 02/23/23 08:24 Dose 125 mg .ROUTE .STK-MED ONE Sterile Water Confirm 02/23/23 08:23 Water For Injection,Sterile 10 Ml Vial Administered 02/23/23 08:24 Dose 10 ml IJ .K-MED ONE Lab/Rad Data: Laboratory Result Diagrams 02/23/23 07:15 02/23/23 06:30 Laboratory Results 02/23/23 02/23/23 02/23/23 Range/Units 10:15 07:15 07:15 WBC (4.0-10.5) x10^3/uL RBC (4.1-5.4) x10^6/uL Hgb (12.0-16.0) g/dL Hct (35-47) % MCV (78-100) fL MCH (26-32) pg MCHC (32-36) g/dL RDW (11.5-14.0) % Plt Count (150-450) x10^3/uL MPV (7.5-11.0) fL Gran % (36.0-66.0) % Immature Gran % (Auto) (0.00-0.4) % Nucleat RBC Rel Count (0.00-0.1) % Eos # (Auto) (0-0.5) x10^3/uL Immature Gran # (Auto) (0.00-0.03) x10^3u/L Absolute Lymphs (auto) (1.0-4.6) x10^3/uL Absolute Monos (auto) (0.0-1.3) x10^3/uL Absolute Nucleated RBC (0.00-0.01) x10^3u/L Lymphocytes % (24.0-44.0) % Monocytes % (0.0-12.0) % Eosinophils % (0.00-5.0) % Basophils % (0.0-0.4) % Absolute Granulocytes (1.4-6.9) x10^3/uL Basophils # (0-0.4) x10^3/uL D-Dimer (0.0-0.50) mg/L Sodium (137-145) mmol/L Potassium (3.5-5.1) mmol/L Chloride (98-107) mmol/L Carbon Dioxide (22-30) mmol/L Anion Gap (5-15) MEQ/L BUN (7-17) mg/dL Creatinine (0.52-1.04) mg/dL Estimated GFR ML/MIN Glucose (74-106) mg/dL Calcium (8.4-10.2) mg/dL Magnesium (1.6-2.3) mg/dL Total Bilirubin (0.2-1.3) mg/dL AST (14-36) U/L ALT (0-35) U/L Alkaline Phosphatase (38-126) U/L Troponin I < 0.012 < 0.012 (0.000-0.034) ng/mL NT-Pro-B Natriuret Pep (<300) pg/mL Serum Total Protein (6.3-8.2) g/dL Albumin (3.5-5.0) g/dL Influenza Type A Ag NEGATIVE (NEGATIVE) Influenza Type B Ag NEGATIVE (NEGATIVE) RSV (PCR) NEGATIVE (NEGATIVE) SARS-CoV-2 (PCR) NEGATIVE (NEGATIVE) 02/23/23 02/23/23 02/23/23 Range/Units 07:15 06:30 06:30 WBC 6.9 (4.0-10.5) x10^3/uL RBC 4.26 (4.1-5.4) x10^6/uL Hgb 12.4 (12.0-16.0) g/dL Hct 38.1 (35-47) % MCV 89.4 (78-100) fL MCH 29.1 (26-32) pg MCHC 32.5 (32-36) g/dL RDW 13.6 (11.5-14.0) % Plt Count 302 (150-450) x10^3/uL MPV 10.5 (7.5-11.0) fL Gran % 55.5 (36.0-66.0) % Immature Gran % (Auto) 0.1 (0.00-0.4) % Nucleat RBC Rel Count 0.0 (0.00-0.1) % Eos # (Auto) 0.13 (0-0.5) x10^3/uL Immature Gran # (Auto) 0.01 (0.00-0.03) x10^3u/L Absolute Lymphs (auto) 2.22 (1.0-4.6) x10^3/uL Absolute Monos (auto) 0.69 (0.0-1.3) x10^3/uL Absolute Nucleated RBC 0.00 (0.00-0.01) x10^3u/L Lymphocytes % 32.2 (24.0-44.0) % Monocytes % 10.0 (0.0-12.0) % Eosinophils % 1.9 (0.00-5.0) % Basophils % 0.3 (0.0-0.4) % Absolute Granulocytes 3.83 (1.4-6.9) x10^3/uL Basophils # 0.02 (0-0.4) x10^3/uL D-Dimer 0.58 H (0.0-0.50) mg/L Sodium 136 L (137-145) mmol/L Potassium 3.8 (3.5-5.1) mmol/L Chloride 106 (98-107) mmol/L Carbon Dioxide 21 L (22-30) mmol/L Anion Gap 12.3 (5-15) MEQ/L BUN 11 (7-17) mg/dL Creatinine 0.57 (0.52-1.04) mg/dL Estimated GFR 115.6 ML/MIN Glucose 100 (74-106) mg/dL Calcium 9.2 (8.4-10.2) mg/dL Magnesium 2.1 (1.6-2.3) mg/dL Total Bilirubin 1.10 (0.2-1.3) mg/dL AST 32 (14-36) U/L ALT 28 (0-35) U/L Alkaline Phosphatase 84 (38-126) U/L Troponin I (0.000-0.034) ng/mL NT-Pro-B Natriuret Pep 113 (<300) pg/mL Serum Total Protein 7.8 (6.3-8.2) g/dL Albumin 4.1 (3.5-5.0) g/dL Influenza Type A Ag (NEGATIVE) Influenza Type B Ag (NEGATIVE) RSV (PCR) (NEGATIVE) SARS-CoV-2 (PCR) (NEGATIVE) - Progress Progress: re-examined Air Movement: good Counseled pt/family regarding: diagnosis <EMERALD QUINTANILLA - Last Filed: 02/23/23 06:44> <ALLEN MAURER - Last Filed: 02/23/23 11:06> - Progress Progress Note: 02/23/23 06:48 This patient's medical issue is 1 of moderate complexity. Level complexity in the workup performed is based on review of the patient's past medical history, review the patient's medication allergy list, review of the patient's medication list, history of present illness and physical findings on examination. Workup in this patient includes placement of intravenous line, twelve-lead EKG, tropon in, D-dimer, BNP, CBC, CMP, viral swabs and chest x-ray. 02/23/23 06:51 I am transferring care of this patient to Dr. Maurer at shift change. He will follow-up on the workup radiographic and laboratory studies. He will make final disposition. (EMERALD QUINTANILLA) 02/23/23 11:03 patient is checked out to me at shift change from Dr. Quintanilla with pending workup. Patient has history of dizziness/vertigo. She took meclizine which did help but later on she started to have palpitations and shortness of breath on the way to work. Patient EKG is normal sinus with no acute ischemic changes. She has minimal dizziness with movements of her head. Nonfocal neuroexam. I have given her another meclizine here and on reevaluation her symptoms are completely resolved. She is able to ambulate in the ER without any limitation. She has mildly elevated D-dimer and CTA is obtained which is negative for PE or any other acute intrathoracic findings. Patient after receiving contrast had some erythema and increasing shortness of breath, was given Solu-Medrol Benadryl and Pepcid and observed in the ER and her symptoms are resolved. She has no shortness of breath on reevaluation. Lungs bilateral clear to auscultation. Second troponins are negative. She does have history of asthma and it could be related to diet. I would give her a short course of steroid and an inhaler to go home. Her dizziness is peripheral, do not think needs any neurowork-up. Discussed signs symptoms of worsening needing return to ER which she seems understanding. Stable for discharge. (ALLEN MAURER) Medical Desision Making - Diagnostic Testing Diagnostic test were ordered, analyzed, and reviewed by me: No <EMERALD QUINTANILLA - Last Filed: 02/23/23 06:44> - Diagnostic Testing Diagnostic test were ordered, analyzed, and reviewed by me: Yes Radiological Interpretation: Reviewed by me - Risk of complications The pt has a mod risk of morbidity or mortality based on: Need for prescription drug management <ALLEN MAURER - Last Filed: 02/23/23 11:06> - Departure Departure Disposition: Home Critical Care Time: No <EMERALD QUINTANILLA - Last Filed: 02/23/23 06:44> - Departure Departure Disposition: Home <ALLEN MAURER - Last Filed: 02/23/23 11:06> - Departure Clinical Impression: Shortness of breath Condition: Stable Referrals: SAYDA NORWOOD [Primary Care Provider] - Follow Up with PCP/3 days Instructions: Shortness of Breath (Dyspnea) (DC) Additional Instructions: Use inhaler as needed. Continue with meclizine as needed which you have at home. Follow-up with primary care for reevaluation. Return to ER for any worsening Prescriptions: Prednisone 20 mg [Deltasone 20 mg] 60 mg PO DAILY 5 Days #15 tablet Albuterol 8 gm Mdi Hfa [Ventolin Hfa MDI] 8 gm IH Q4H #1 inh
[2023-02-23 07:23] LABS: Absolute Neutrophil Ct (ANC) 3.83 x10^3/uL (1.4-6.9); BASOPHIL % 0.3 % (0.0-0.4); Basophil (Absolute #) 0.02 x10^3/uL (0-0.4); Eosinophil % 1.9 % (0.00-5.0); Eosinophil (Absolute #) 0.13 x10^3/uL (0-0.5); Hematocrit 38.1 % (35-47); Hemoglobin 12.4 g/dL (12.0-16.0); IMMATURE GRAN # 0.01 x10^3u/L (0.00-0.03); IMMATURE GRAN % 0.1 % (0.00-0.4); Lymphocyte (Absolute #) 2.22 x10^3/uL (1.0-4.6); Lymphocytes % 32.2 % (24.0-44.0); Mean Cell Volume 89.4 fL (78-100); Mean Corpuscular Hemoglobin 29.1 pg (26-32); Mean Corpuscular Hgb Concent. 32.5 g/dL (32-36); Mean Platelet Volume 10.5 fL (7.5-11.0); Monocyte (Absolute #) 0.69 x10^3/uL (0.0-1.3); Neutrophil % 55.5 % (36.0-66.0); Platelet Count 302 x10^3/uL (150-450); Red Blood Count 4.26 x10^6/uL (4.1-5.4); Red Cell Distribution Width 13.6 % (11.5-14.0); White Blood Count 6.9 x10^3/uL (4.0-10.5)
[2023-02-23 07:47] LABS: ALBUMIN 4.1 g/dL (3.5-5.0); ANION GAP 12.3 MEQ/L (5-15); BILIRUBIN,TOTAL 1.1 mg/dL (0.2-1.3); Calcium 9.2 mg/dL (8.4-10.2); Creatinine 1 0.57 mg/dL (0.52-1.04); EST GLOMERULAR FILTRATION RATE 115.6 ML/MIN; MAGNESIUM 2.1 mg/dL (1.6-2.3); Potassium 3.8 mmol/L (3.5-5.1); Total Protein 7.8 g/dL (6.3-8.2)
[2023-02-23] MEDS ORDERED: ANTIVERT 25 MG PO ONE (07:58)
[2023-02-23] MEDS ORDERED: ANTIVERT 25 MG ONE (07:59)
[2023-02-23 08:00] LABS: INFLUENZA A NEGATIVE (NEGATIVE); INFLUENZA B NEGATIVE (NEGATIVE); RESPIRATORY SYNCTIAL VIRUS NEGATIVE (NEGATIVE); SARS-CoV-2 Xpert Express NEGATIVE (NEGATIVE)
[2023-02-23] MEDS ORDERED: solu-MEDROL 125 MG, Sterile H2O 10 ml 2 ML IV ONE ×2 (08:21)
[2023-02-23] MEDS ORDERED: Pepcid 20 MG VIAL IV ONE ×2 (08:21→08:23)
[2023-02-23] MEDS ORDERED: BENADRYL 50 MG/ML IV ONE (08:21)
[2023-02-23] MEDS ORDERED: BENADRYL 50 MG/ML ONE (08:23)
[2023-02-23] MEDS ORDERED: Sterile H2O 10 ml IJ ONE (08:23)
[2023-02-23] MEDS ORDERED: solu-MEDROL ONE (08:23)
--- NOTE | 2023-02-23 08:24 | XRAY ---
Indication: Short of breath. Comparison: None Portable chest demonstrates normal heart, lungs, and bony thorax with a few incidental tiny right lung calcified granulomas.
--- NOTE | 2023-02-23 08:42 | XRAY ---
Indication: Short of breath. Pulmonary embolus. Multiple contiguous axial images obtained through the chest using 80 cc Isovue 370 contrast and PE protocol. Comparison: None Good opacification of the pulmonary arteries to include the lobar and segmental branches. No pulmonary embolus. Heart not enlarged. Aorta is normal in course and caliber. No pathologic mediastinal/hilar lymphadenopathy. Small hiatal hernia. Lungs inflated and clear. Bony thorax intact. Limited upper abdomen demonstrates fatty liver and cholecystectomy clips. Impression: 1. Negative pulmonary embolus. No acute cardiopulmonary abnormalities. 2. Incidental small hiatal hernia and fatty liver. Comment: Patient complained of short of breath, nausea, erythema, and lightheadedness following contrast injection. Ordering ER clinician Dr. Delaney was notified.
[2023-02-23 10:15] VITALS: PULSE 72; RESP 22; O2SAT 95
[2023-02-23 11:02] VITALS: BP 119/81
== END 2023-02-23 11:18 | disposition home or self-care (01) ==
LOC: ED 06:11
DX: R06.02 Shortness of breath (principal); R42 Dizziness and giddiness; Z79.52 Long term (current) use of systemic steroids; Z79.899 Other long term (current) drug therapy; Z86.16 Personal history of COVID-19
CPT/HCPCS: 0241U; 36000; 36415; 71045; 71260; 80053; 83735; 83880; 84484; 85025; 85379; 87040; 93005; 94760; 96374; 96375; 99284; J1200; J2930; A9270-GY